=== PATIENT | female | born 1995 | race Caucasian/White ===

== ENCOUNTER 2024-06-06 12:46 | Emergency (ER) | payer OTHER ==
[~2024-06-06] VITALS: Ht 154.9 cm; Wt 77.6 kg
[~2024-06-06 12:46] MED LIST: CODACEE120 PO
[2024-06-06 12:56] VITALS: BP 126/52
[2024-06-06] MEDS ORDERED: PANTOPRAZOLE SO40 M2 PO (13:38)
[2024-06-06] MEDS ORDERED: ZYRTEC10 M2 PO (13:38)
== END 2024-06-06 14:09 | disposition home or self-care (01) ==
LOC: ER 12:46
DX: R51.9 Headache, unspecified (principal); V89.2XXA Person injured in unspecified motor-vehicle accident, traffic, initial encounter
CPT/HCPCS: 99283